=== PATIENT | female | born 1940 | race Caucasian/White ===

== ENCOUNTER 2017-02-14 11:10 | Inpatient (IN) | payer MEDICARE, OTHER ==
[2017-02-10 15:01] LABS: Basophils # (auto) 0.1 uL; Basophils % (auto) 0.8 % (0.0-2.0); Eosinophils # (auto) 0.2 uL; Eosinophils % (auto) 2.7 % (0.0-7.0); Hematocrit 49.2 % (36.0-46.0); Hemoglobin 16.1 g/dL (12.2-16.2); Lymphocytes # (auto) 1.2 uL; Lymphocytes % (auto) 15.9 % (10.0-50.0); Mean Corpuscular Hgb Conc. 32.8 g/dL (32.0-36.0); Mean Corpuscular Volume 91.5 fL (80.0-100.0); Mean Platelet Volume 10.5 fL (6.9-10.8); Monocytes # (auto) 0.7 uL; Monocytes % (auto) 9.4 % (0.0-12.0); Neutrophils # (auto) 5.4 uL; Neutrophils % (auto) 71.2 % (37.0-80.0); Nucleated Red Blood Cells % 0.1 %; Platelet Count (auto) 183 10^3/uL (140-450); Red Cell Distribution Width 17.2 % (11.8-14.3); White Blood Cell 7.6 10^3/uL (4.4-10.8)
[2017-02-10 15:05] LABS: Urine Bilirubin Negative (Negative); Urine Blood Negative /uL (Negative); Urine Color Yellow (Yellow); Urine Glucose Normal (Normal); Urine Ketone Negative (Negative); Urine Mucus FEW (None Seen); Urine Nitrite Negative (Negative); Urine RBC <1 /hpf (0 - 4); Urine Squamous Epithelial Cell MOD /hpf (<5); Urine Urobilinogen Normal (Negative)
[2017-02-10 15:16] LABS: INR 0.95 (0.9-1.15); Partial Thromboplastin Time 27.4 sec (22.64-33.71); Prothrombin Time 10.4 sec (9.37-12.3)
[2017-02-10 15:20] LABS: Albumin 3.5 g/dL (3.4-5.0); BUN/Creatinine Ratio 19.1; Calcium 9.2 mg/dL (8.5-10.1)
[2017-02-10 15:22] LABS: Bilirubin, Total 0.7 mg/dL (0.2-1.0); Total Protein 7.6 g/dL (6.4-8.2)
[~2017-02-14] VITALS: Ht 152.4 cm; Wt 100.4 kg
[~2017-02-14 11:10] MED LIST: ASPI81TA27 PO; ATEN-60 PO; BETH5TAB2 PO; CALC0.25 PO; CHOL500021 OR; COEN200C11 PO; COLLCAP2 OR; ESCI10TA PO; HYDR25TA4 PO; LISI10TA6 PO; MAGN400T21 OR; NAPR-505 PO; PANT40TA2 PO; POTA10TA34 PO; SILD20TA18 PO; SIMV10TA73 PO
[2017-02-14] MEDS ORDERED: ceFAZolin 1GM/50ML 50 ML IV ONE (11:11)
[2017-02-14] MEDS ORDERED: BUPIVACAINE W/ EPINEPH 0.5% MPF 30ML VIAL IJ ONE (13:27)
[2017-02-14] MEDS ORDERED: METOPROLOL TARTRATE 1MG/1ML-5ML VIAL IV ONE (13:51)
[2017-02-14] MEDS ORDERED: MIDAZOLAM HCL 1MG/1ML-2 ML VIAL ONE ×4 (13:51→14:24)
[2017-02-14] MEDS ORDERED: fentaNYL CITRATE 100 MCG/2 ML VL ONE (13:51)
[2017-02-14] MEDS ORDERED: PROPOFOL 10 MG/ML 20 ML IV ONE ×2 (14:25→15:37)
[2017-02-14] MEDS ORDERED: ceFAZolin 1GM VL ONE (14:29)
[2017-02-14] MEDS ORDERED: ONDANSETRON HCL 4 MG/2 ML VIAL IV ONE (16:15)
[2017-02-14] MEDS ORDERED: KETOROLAC TROMETH 30 MG/ML 1ML VIAL IV ONE (16:15)
[2017-02-14] MEDS ORDERED: HYDROmorphone HCL 2 MG/ML VL IV PRN (16:15)
[2017-02-14] MEDS ORDERED: LABETALOL HCL 5 MG/ML 4ML SYRINGE IV PRN (16:15)
[2017-02-14] MEDS ORDERED: MIDAZOLAM HCL 1MG/1ML-2 ML VIAL IV PRN (16:15)
[2017-02-14] MEDS ORDERED: ePHEDrine SULFATE 50 MG/ML AMP IV PRN (16:15)
[2017-02-14] MEDS ORDERED: LACTATED RINGER'S 1,000 ML IV SCH (17:11)
[2017-02-14] MEDS ORDERED: ONDANSETRON HCL 4 MG/2 ML VIAL IV PRN (17:15)
[2017-02-14] MEDS ORDERED: HYDROcodone-ACET 10/325MG TAB PO PRN (17:15)
[2017-02-14] MEDS ORDERED: TEMAZEPAM 15 MG CAP PO PRN (17:15)
[2017-02-14] MEDS ORDERED: ACETAMINOPHEN 325 MG TAB PO PRN (17:15)
[2017-02-14] MEDS ORDERED: ENOXAPARIN SOD 40 MG/0.4 ML SYRINGE SC ONE (17:30)
[2017-02-14] MEDS: ceFAZolin 1GM/50ML 50 ML IV SCH (19:09)
[2017-02-14] MEDS: HYDROmorphone HCL 2 MG/ML VL IV PRN ×2 (19:30→22:59)
[2017-02-14 20:00] VITALS: BP 134/0
[2017-02-14] MEDS ORDERED: INFLUENZA QUAD 2017-2018 0.5 ML SYRG IM ONE (20:00)
[2017-02-14] MEDS: DOCUSATE SOD 100 MG CAP PO SCH (21:26)
[2017-02-14] MEDS: oxyCODONE ER 10 MG TAB PO SCH (21:27)
[2017-02-14 22:00] VITALS: BP 174/73
[2017-02-15] VITALS (8 sets, daily range): BP systolic 129–187; BP diastolic 62–78
[2017-02-15] MEDS: ceFAZolin 1GM/50ML 50 ML IV SCH ×2 (00:58→05:57)
[2017-02-15] MEDS: SODIUM CHLOR 0.9% PF (SALINE LOCK) 10ML VIAL IV SCH ×4 (01:04→21:46)
[2017-02-15] MEDS: HYDROmorphone HCL 2 MG/ML VL IV PRN ×6 (02:05→23:51)
[2017-02-15 03:06] LABS: Basophils # (auto) 0 uL; Basophils % (auto) 0.3 % (0.0-2.0); Eosinophils # (auto) 0 uL; Eosinophils % (auto) 0.1 % (0.0-7.0); Hematocrit 38.4 % (36.0-46.0); Hemoglobin 12.6 g/dL (12.2-16.2); Lymphocytes # (auto) 0.6 uL; Lymphocytes % (auto) 5.9 % (10.0-50.0); Mean Corpuscular Hemoglobin 29.8 pg (28.0-32.0); Mean Corpuscular Hgb Conc. 32.7 g/dL (32.0-36.0); Mean Corpuscular Volume 91.1 fL (80.0-100.0); Mean Platelet Volume 9.5 fL (6.9-10.8); Monocytes # (auto) 1.3 uL; Monocytes % (auto) 12.5 % (0.0-12.0); Neutrophils # (auto) 8.6 uL; Neutrophils % (auto) 81.2 % (37.0-80.0); Platelet Count (auto) 129 10^3/uL (140-450); Red Cell Distribution Width 17.1 % (11.8-14.3); White Blood Cell 10.6 10^3/uL (4.4-10.8)
[2017-02-15 03:42] LABS: Albumin 2.6 g/dL (3.4-5.0); BUN/Creatinine Ratio 16.9; Calcium 8.5 mg/dL (8.5-10.1); Potassium 3.9 mmol/L (3.5-5.1)
[2017-02-15 03:45] LABS: Bilirubin, Total 0.8 mg/dL (0.2-1.0); Total Protein 5.8 g/dL (6.4-8.2)
[2017-02-15 09:25] LABS: Hematocrit 40.1 % (36.0-46.0); Hemoglobin 12.8 g/dL (12.2-16.2)
[2017-02-15] MEDS: CALCITRIOL 0.25 MCG CAP PO SCH (09:40)
[2017-02-15] MEDS: ATENOLOL 25 MG TAB PO SCH (09:42)
[2017-02-15] MEDS: LISINOPRIL 10 MG TAB PO SCH (09:42)
[2017-02-15] MEDS: DOCUSATE SOD 100 MG CAP PO SCH ×2 (09:43→21:46)
[2017-02-15] MEDS: ENOXAPARIN SOD 40 MG/0.4 ML SYRINGE SC SCH (09:43)
[2017-02-15] MEDS: CITALOPRAM HYDROBR 20 MG TAB PO SCH (09:43)
[2017-02-15] MEDS: oxyCODONE ER 10 MG TAB PO SCH ×2 (09:43→21:46)
[2017-02-15 09:54] LABS: Albumin 2.8 g/dL (3.4-5.0); BUN/Creatinine Ratio 14.6; Calcium 8.7 mg/dL (8.5-10.1); Potassium 4.2 mmol/L (3.5-5.1); Total Protein 6.2 g/dL (6.4-8.2)
[2017-02-16 05:00] VITALS: BP 123/75
[2017-02-16] MEDS: SODIUM CHLOR 0.9% PF (SALINE LOCK) 10ML VIAL IV SCH ×3 (05:20→22:23)
[2017-02-16] MEDS: HYDROmorphone HCL 2 MG/ML VL IV PRN ×4 (05:42→20:25)
[2017-02-16 08:00] VITALS: BP 167/78
[2017-02-16 08:23] LABS: Hematocrit 36.4 % (36.0-46.0); Hemoglobin 11.7 g/dL (12.2-16.2)
[2017-02-16 08:40] LABS: Albumin 2.4 g/dL (3.4-5.0); BUN/Creatinine Ratio 13.6; Bilirubin, Total 1.3 mg/dL (0.2-1.0); Potassium 4.1 mmol/L (3.5-5.1); Total Protein 5.8 g/dL (6.4-8.2)
[2017-02-16 08:58] VITALS: BP 115/88
[2017-02-16] MEDS: ENOXAPARIN SOD 40 MG/0.4 ML SYRINGE SC SCH (09:26)
[2017-02-16] MEDS: CALCITRIOL 0.25 MCG CAP PO SCH (09:27)
[2017-02-16] MEDS: LISINOPRIL 10 MG TAB PO SCH (09:27)
[2017-02-16] MEDS: ATENOLOL 25 MG TAB PO SCH (09:27)
[2017-02-16] MEDS: oxyCODONE ER 10 MG TAB PO SCH ×2 (09:28→22:00)
[2017-02-16] MEDS: DOCUSATE SOD 100 MG CAP PO SCH ×2 (09:28→22:35)
[2017-02-16] MEDS: CITALOPRAM HYDROBR 20 MG TAB PO SCH (09:28)
[2017-02-16 13:00] VITALS: BP 118/71
[2017-02-16 16:50] VITALS: BP 85/45
[2017-02-16 22:03] VITALS: BP 100/39
[2017-02-17] MEDS: HYDROmorphone HCL 2 MG/ML VL IV PRN ×5 (04:38→20:44)
[2017-02-17 05:00] VITALS: BP 103/59
[2017-02-17] MEDS: SODIUM CHLOR 0.9% PF (SALINE LOCK) 10ML VIAL IV SCH ×3 (05:35→22:00)
[2017-02-17 08:00] VITALS: BP 92/55
[2017-02-17 08:12] LABS: Hematocrit 34.9 % (36.0-46.0); Hemoglobin 11.3 g/dL (12.2-16.2)
[2017-02-17 08:36] LABS: Albumin 2.2 g/dL (3.4-5.0); Calcium 9.6 mg/dL (8.5-10.1); Potassium 4.3 mmol/L (3.5-5.1); Total Protein 6.2 g/dL (6.4-8.2)
[2017-02-17 09:00] VITALS: BP 92/55
[2017-02-17] MEDS: oxyCODONE ER 10 MG TAB PO SCH ×2 (09:55→22:00)
[2017-02-17] MEDS: ENOXAPARIN SOD 40 MG/0.4 ML SYRINGE SC SCH (09:55)
[2017-02-17] MEDS: CITALOPRAM HYDROBR 20 MG TAB PO SCH (09:56)
[2017-02-17] MEDS: CALCITRIOL 0.25 MCG CAP PO SCH (09:56)
[2017-02-17] MEDS: DOCUSATE SOD 100 MG CAP PO SCH ×2 (09:56→22:37)
[2017-02-17] MEDS: ATENOLOL 25 MG TAB PO SCH (09:56)
[2017-02-17] MEDS: LISINOPRIL 10 MG TAB PO SCH (09:57)
[2017-02-17] MEDS ORDERED: INFLUENZA QUAD 2017-2018 0.5 ML SYRG IM ONE (12:30)
[2017-02-17 13:00] VITALS: BP 101/54
[2017-02-17 17:00] VITALS: BP 122/69
[2017-02-17 22:04] VITALS: BP 133/66
[2017-02-18 04:47] VITALS: BP 123/88
[2017-02-18] MEDS: HYDROmorphone HCL 2 MG/ML VL IV PRN ×2 (05:00→08:55)
[2017-02-18] MEDS: SODIUM CHLOR 0.9% PF (SALINE LOCK) 10ML VIAL IV SCH (06:20)
[2017-02-18 07:37] LABS: Hemoglobin 11.3 g/dL (12.2-16.2)
[2017-02-18 08:00] VITALS: BP 101/58
[2017-02-18 08:06] LABS: Albumin 2.1 g/dL (3.4-5.0); BUN/Creatinine Ratio 20.3; Bilirubin, Total 1.1 mg/dL (0.2-1.0); Calcium 9.7 mg/dL (8.5-10.1); Potassium 4.4 mmol/L (3.5-5.1); Total Protein 6.4 g/dL (6.4-8.2)
[2017-02-18 08:57] VITALS: BP 101/58
[2017-02-18] MEDS: ATENOLOL 25 MG TAB PO SCH (10:00)
[2017-02-18] MEDS: LISINOPRIL 10 MG TAB PO SCH (10:00)
[2017-02-18] MEDS ORDERED: POTASSIUM CHL 20 Meq TABLET PO ONE (10:30)
[2017-02-18] MEDS ORDERED: FUROSEMIDE 20 MG/2 ML VIAL IV ONE (10:30)
[2017-02-18 12:42] VITALS: BP 101/58
[2017-02-18] MEDS: CALCITRIOL 0.25 MCG CAP PO SCH (12:47)
[2017-02-18] MEDS: ENOXAPARIN SOD 40 MG/0.4 ML SYRINGE SC SCH (12:47)
[2017-02-18] MEDS: DOCUSATE SOD 100 MG CAP PO SCH (12:48)
[2017-02-18] MEDS: oxyCODONE ER 10 MG TAB PO SCH (12:49)
[2017-02-18] MEDS: CITALOPRAM HYDROBR 20 MG TAB PO SCH (12:49)
[2017-02-18 12:53] VITALS: BP 106/71
== END 2017-02-18 13:15 | DRG 469 ==
LOC: SUR 11:10 → TELE-CENTR 11:11 → CENTRAL 02-15 05:26
PROVIDERS: ADMIT Orthopaedic Surgery; ATTEND Internal Medicine
PROC: 0QSD0ZZ Reposition Right Patella, Open Approach (ICD-10-PCS; 2017-02-14)
PROC: 0KNQ0ZZ Release Right Upper Leg Muscle, Open Approach (ICD-10-PCS; 2017-02-14)
PROC: 0SRC0J9 Replacement of Right Knee Joint with Synthetic Substitute, Cemented, Open Approach (ICD-10-PCS; principal; 2017-02-14 13:50)
DX: M17.11 Unilateral primary osteoarthritis, right knee (principal); E43 Unspecified severe protein-calorie malnutrition; Z68.41 Body mass index [BMI] 40.0-44.9, adult; E66.01 Morbid (severe) obesity due to excess calories; E20.9 Hypoparathyroidism, unspecified; M70.41 Prepatellar bursitis, right knee; E78.5 Hyperlipidemia, unspecified; Z96.652 Presence of left artificial knee joint; E21.3 Hyperparathyroidism, unspecified; Z60.2 Problems related to living alone; I10 Essential (primary) hypertension; Z80.3 Family history of malignant neoplasm of breast; Z82.49 Family history of ischemic heart disease and other diseases of the circulatory system; Z86.711 Personal history of pulmonary embolism; Z85.3 Personal history of malignant neoplasm of breast; Z88.2 Allergy status to sulfonamides; Z88.1 Allergy status to other antibiotic agents; Z92.3 Personal history of irradiation
CPT/HCPCS: 36415; 73560; 80053; 81001; 85014; 85018; 85025; 85610; 85730; 86850; 86900; 86901; 97116; 97163; 97530; J0690; J2250; J2405; J2704

== ENCOUNTER 2018-04-17 16:15 | Emergency (ER) | payer MEDICARE, OTHER ==
[~2018-04-17] VITALS: Ht 157.5 cm; Wt 81.6 kg
[~2018-04-17 16:15] MED LIST changes: -COLLCAP2 OR; -HYDR25TA4 PO; -MAGN400T21 OR; -POTA10TA34 PO; +POTA1TAB61 PO
[2018-04-17 16:51] LABS: Basophils # (auto) 0 uL; Basophils % (auto) 0.6 % (0.0-2.0); Eosinophils # (auto) 0.3 uL; Mean Corpuscular Volume 83.6 fL (80.0-100.0); Monocytes # (auto) 0.7 uL
[2018-04-17 16:53] LABS: Eosinophils % (auto) 4.6 % (0.0-7.0); Hematocrit 44.5 % (36.0-46.0); Hemoglobin 14.3 g/dL (12.2-16.2); Lymphocytes # (auto) 1.5 uL; Lymphocytes % (auto) 22.8 % (10.0-50.0); Mean Corpuscular Hemoglobin 26.8 pg (28.0-32.0); Mean Corpuscular Hgb Conc. 32.1 g/dL (32.0-36.0); Monocytes % (auto) 10.2 % (0.0-12.0); Neutrophils % (auto) 61.8 % (37.0-80.0); Platelet Count (auto) 178 10^3/uL (140-450); Red Blood Cells 5.33 10^6/uL (4.0-5.20); Red Cell Distribution Width 17.7 % (11.8-14.3); White Blood Cell 6.5 10^3/uL (4.4-10.8)
[2018-04-17 17:12] LABS: Alanine Aminotransferase 16 U/L (13-56); Albumin 3.4 g/dL (3.4-5.0); Anion Gap 10 (5-15); Aspartate Aminotransferase 14 U/L (15-37); BUN/Creatinine Ratio 17.4; Blood Urea Nitrogen 16 mg/dL (7-18); Calcium 8.9 mg/dL (8.5-10.1); Carbon Dioxide 24 mmol/L (21-32); Chloride 107 mmol/L (98-107); GFR African American > 60 mL/min; GFR Non-African American > 60 mL/min; Glucose 79 mg/dL (74-106); Potassium 3.4 mmol/L (3.5-5.1); Sodium 141 mmol/L (136-145)
[2018-04-17 17:17] LABS: Alkaline Phosphatase 95 U/L (45-117); Bilirubin, Total 0.8 mg/dL (0.2-1.0); Total Protein 7.5 g/dL (6.4-8.2)
[2018-04-17 17:18] LABS: INR 0.93 (0.9-1.15); Partial Thromboplastin Time 27.1 sec (23.78-33.04)
[2018-04-17 18:21] LABS: Urine Bacteria FEW /hpf (None Seen); Urine Blood Negative /uL (Negative); Urine Mucus FEW (None Seen); Urine Specific Gravity 1.006 (1.001-1.035); Urine WBC 1 /hpf (0 - 5)
[2018-04-17 19:30] VITALS: BP 149/109
== END 2018-04-17 19:46 | disposition home or self-care (01) ==
LOC: ER 16:15 → EDBD 16:15 → EDUNIT# 16:15 → ER 19:46
DX: I47.1 Supraventricular tachycardia (principal); I11.0 Hypertensive heart disease with heart failure; I50.42 Chronic combined systolic (congestive) and diastolic (congestive) heart failure; E78.5 Hyperlipidemia, unspecified; Z88.2 Allergy status to sulfonamides; Z79.82 Long term (current) use of aspirin; Z79.899 Other long term (current) drug therapy
CPT/HCPCS: 36415; 71045; 80053; 81001; 83735; 83880; 84443; 84484; 85025; 85610; 85730; 93005